=== PATIENT | female | born 1935 | race Caucasian/White ===

== ENCOUNTER 2021-03-17 01:25 | Outpatient (CLI) | payer SELFPAY | END 2021-03-17 01:26 | disposition EMS.NT | LOC: EMS 01:25 | DX: R51.9 Headache, unspecified (principal); R41.9 Unspecified symptoms and signs involving cognitive functions and awareness ==

== ENCOUNTER 2022-08-06 12:44 | Emergency (ER) | payer MEDICARE ==
[2022-08-06 13:03] VITALS: BP 152/73
--- OUTSIDE RECORDS SUMMARY | 2022-08-06 13:23 | EXTERNAL MEDICAL SUMMARY RPT | Continuity of Care Document ---
:1935 Author Organization [place] Address [address] [place] [address] Phone Allergies No information. Encounters No information. Functional Status No information. Immunizations No information. Medications No information. Problems date description facility 2022-06-07 10:[address] [facility] proteins Procedures No information. Results/Labs test date author facility value unit interpret ation Result panel 1 (unknown) (no (unknown) (unknown) (no value) (units (unk nown) date) unknown) (unknown) (no (unknown) (unknown) 06/07/22 (units (unkno wn) date) unknown) (unknown) (no (unknown) (unknown) [address] [place] [address] (units (unknown) date) unknown) (unknown) (no (unknown) (unknown) 61 mL. (units (unkno wn) date) unknown) (unknown) (no (unknown) (unknown) 6536 (units (unkno wn) date) unknown) (unknown) (no (unknown) (unknown) 99m (units (unkno wn) date) unknown) (unknown) (no (unknown) (unknown) A pharmacologic (units (unknown) date) stress test was unknown) performed under the supervision of an attending (unknown) (no (unknown) (unknown) Accession Number: (units (unknown) date) [id number] unknown) (unknown) (no (unknown) (unknown) Age/Sex: 87 / F Date (uni ts (unknown) date) of Service: unknown) (unknown) (no (unknown) (unknown) MICHAEL Fortune [id number] (unit s (unknown) date) unknown) (unknown) (no (unknown) (unknown) Approved by: Jessika (unit s (unknown) date) Quentin Treviño on unknown) 06/07/2022 at 16:02 (unknown) (no (unknown) (unknown) CARDIAC STRESS: (units (unknown) date) unknown) (unknown) (no (unknown) (unknown) COMPARISON: None. (units (unknown) date) unknown) (unknown) (no (unknown) (unknown) : 1935 (units (unknown) date) Acct:[id number] unknown) (unknown) (no (unknown) (unknown) Dictated by: Jessika (unit s (unknown) date) Quentin Treviño on unknown) 06/07/2022 at 16:00 (unknown) (no (unknown) (unknown) EKG: No diagnostic (units (unknown) date) changes of ischemia; unknown) no ectopy. (unknown) (no (unknown) (unknown) FINDINGS: (units (unkn own) date) unknown) (unknown) (no (unknown) (unknown) Hemodynamic data: (units (unknown) date) There is normal blood unknown) pressure and heart rate response to (unknown) (no (unknown) (unknown) Hyperdynamic left (units (unknown) date) ventricular function. unknown) (unknown) (no (unknown) (unknown) IMPRESSION: No (units (unknown) date) evidence of unknown) pharmacologic induced ischemia or scar. (unknown) (no (unknown) (unknown) INDICATIONS: (units (u nknown) date) ELEVATED TROPONIN unknown) (unknown) (no (unknown) (unknown) [facility] (units (unknown) date) unknown) (unknown) (no (unknown) (unknown) Left ventricle (units (unknown) date) function: Gated unknown) images demonstrate normal left ventricular wall (unknown) (no (unknown) (unknown) Left ventricle (units (unknown) date) stress ejection unknown) fraction is >75%; normal range is above 45%. (unknown) (no (unknown) (unknown) Loc: [facility] (units (unkn own) date) unknown) (unknown) (no (unknown) (unknown) Myocardial (units (unk nown) date) perfusion: There is unknown) normal distribution of activity in the right (unknown) (no (unknown) (unknown) [facility] (units (unknown) date) Report unknown) (unknown) (no (unknown) (unknown) Ordering Provider: (units (unknown) date) Jessika Treviño E unknown) D.OCandida (unknown) (no (unknown) (unknown) PROCEDURE: NM ARIEL (units (unknown) date) PERF SPECT R+S PHARM unknown) (unknown) (no (unknown) (unknown) Patient: Claudia Gray (uni ts (unknown) date) MR#: [id number] unknown) (unknown) (no (unknown) (unknown) Procedure: NM ariel (units (unknown) date) perf SPECT R+S pharm unknown) (unknown) (no (unknown) (unknown) RADIOPHARMACEUTICAL: (uni ts (unknown) date) 12.0 mCi Tc-99m unknown) tetrafosmin IV at rest and 26.5 mCi Tc (unknown) (no (unknown) (unknown) Raw data: There is (units (unknown) date) good myocardial unknown) uptake of radiotracer. No significant (unknown) (no (unknown) (unknown) Rest and (units (unkno wn) date) pharmacological unknown) stress myocardial perfusion SPECT with gated imaging (unknown) (no (unknown) (unknown) SPECT images were (units (unknown) date) obtained. SPECT unknown) myocardial perfusion images were displayed (unknown) (no (unknown) (unknown) Signed (units (unkno wn) date) unknown) (unknown) (no (unknown) (unknown) Symptoms: The (units ( unknown) date) patient denied unknown) anginal chest pain. (unknown) (no (unknown) (unknown) TECHNIQUE: (units (unn) ) Radiopharmaceutical unknown) was injected at peak stress test, and also at (unknown) (no (unknown) (unknown) and left (units (unkno wn) date) unknown) (unknown) (no (unknown) (unknown) and (units (unkno wn) date) unknown) (unknown) (no (unknown) (unknown) artifacts. (units (unk nown) date) Ztvr-kg-vvife ratio unknown) is 0.22 (normal is less than 0.38 for (unknown) (no (unknown) (unknown) axis, horizontal (units (unknown) date) long axis, and unknown) vertical long axis views. Gated images were (unknown) (no (unknown) (unknown) dilation; TID (units ( unknown) date) unknown) (unknown) (no (unknown) (unknown) ejection fraction (units (unknown) date) unknown) (unknown) (no (unknown) (unknown) in short (units (unkno wn) date) unknown) (unknown) (no (unknown) (unknown) is 1.1 (normal less (unit s (unknown) date) than 1.3). Left unknown) ventricle resting end diastolic volume is (unknown) (no (unknown) (unknown) motion (units (unkno wn) date) unknown) (unknown) (no (unknown) (unknown) performed. (units (unk nown) date) unknown) (unknown) (no (unknown) (unknown) pharmacologic (units ( unknown) date) stress. unknown) (unknown) (no (unknown) (unknown) rest. (units (unkno wn) date) unknown) (unknown) (no (unknown) (unknown) reviewed (units (unkno wn) date) unknown) (unknown) (no (unknown) (unknown) staff, (units (unkno wn) date) unknown) (unknown) (no (unknown) (unknown) tetrafosmin IV at (units (unknown) date) peak effect of unknown) pharmacological stress. Hfs-nio-hpdrwlft was (unknown) (no (unknown) (unknown) tetrafosmin (units (un known) date) unknown) (unknown) (no (unknown) (unknown) thickening. No (units (unknown) date) segmental wall motion unknown) abnormalities. No transient ischemic (unknown) (no (unknown) (unknown) tracer). (units (unkno wn) date) unknown) (unknown) (no (unknown) (unknown) using AutoQU[employer] (units (unknown) date) software. unknown) (unknown) (no (unknown) (unknown) using an infusion of (uni ts (unknown) date) Regadenoson. unknown) (unknown) (no (unknown) (unknown) ventricular (units (un known) date) myocardium. No fixed unknown) or reversible perfusion defects. Result panel 2 (unknown) (no date) (unknown) (unknown) Negative (units (unkn own) unknown) (unknown) (no date) (unknown) (unknown) Negative (units (unkn own) unknown) Social History No information. Vital Signs No information.
[2022-08-06] MEDS ORDERED: oxyCODONE 5 MG TABLET PO STA (14:42)
[2022-08-06] MEDS ORDERED: DEXAMETHASONE 10 MG/ML VIAL PO STA (14:43)
[2022-08-06] MEDS ORDERED: CHERRY SYRUP 10 ML UDC PO ONE (14:43)
--- NOTE | 2022-08-06 15:20 | ED Physician Documentation ---
History of Present Illness - Stated complaint Stated Complaint: FALL/LT SIDE BACK PX - Chief complaint Chief Complaint: Trauma Ch/Bk - History obtained from History obtained from: Patient, Family - History of Present Illness Timing: How many days ago (6) - Additonal information Additional information: Claudia Gray is an 87-year-old female with a history of rheumatoid arthritis and hypertension who had a stroke last summer was evaluated and treated here and [place]. She is had a fall 6 days ago and was evaluated in the emergency department at [facility]. There they did a CT scan of the chest and C and T-spine without evidence of fracture. The patient comes to the emergency department today with a chief complaint of inability to control her pain. She has pain to the area of her upper back and left side of her chest. She has pain when she moves. She has been taking ibuprofen and Tylenol and had a very rough night last night. She is accompanied by her daughter who is concerned about her lack of pain control and the possibility that something must of been missed. Review of Systems Constitutional: denies: Fever Eyes: denies: Decreased vision Ears: denies: Ear pain Nose: denies: Congestion Throat: denies: Sore throat Cardiac: reports: Chest pain / pressure Respiratory: denies: Dyspnea, Cough GI: denies: Abdominal Pain, Nausea, Vomiting, Constipation, Diarrhea : denies: Dysuria, Frequency Skin: denies: Rash Musculoskeletal: reports: Back pain. denies: Neck pain PD PAST MEDICAL HISTORY - Past Medical History Cardiovascular: Hypertension Respiratory: None Neuro: None Endocrine/Autoimmune: None Musculoskeletal: Rheumatoid arthritis - Present Medications Home Medications: Ambulatory Orders Medication Instructions Recorded Confirmed Etanercept [Enbrel] 0.5 ml IM UD 01/16/22 01/16/22 traMADol [Ultram] 1 - 2 tab PO BID 01/16/22 01/16/22 Atorvastatin [Lipitor] 80 mg PO QPM 30 Days #60 tablet 01/19/22 Clopidogrel [Plavix] 75 mg PO DAILY #30 tablet 01/19/22 oxyCODONE [Roxicodone] 5 mg PO Q4-6H PRN #14 tablet 08/06/22 - Allergies Allergies/Adverse Reactions: Allergies Allergy/AdvReac Type Severity Reaction Status Date / Time hydrocodone AdvReac Nausea Verified 08/06/22 12:57 - Social History Does the pt smoke?: No Smoking Status: Never smoker Does the pt drink ETOH?: No Does the pt have substance abuse?: No - Immunizations Immunizations are current?: Yes - POLST Patient has POLST: No PD ED PE NORMAL - Vitals Vital signs reviewed: Yes (hypertensive ) - General General: Alert and oriented X 3, No acute distress, Well developed/nourished - HEENT HEENT: Atraumatic, PERRL, EOMI - Neck Neck: Supple, no meningeal sign, No bony TTP - Cardiac Cardiac: RRR, No murmur - Respiratory Respiratory: No respiratory distress, Clear bilaterally, Other (Mild tenderness to the posterior aspect the left chest over the rhomboids and extending up into the shoulder) - Abdomen Abdomen: Normal bowel sounds, Soft, Non tender, Non distended, No organomegaly - Back Back: No CVA TTP, No spinal TTP - Derm Derm: Normal color, Warm and dry, No rash - Extremities Extremities: No deformity, No edema - Neuro Neuro: Alert and oriented X 3, 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, No motor deficit, No sensory deficit, Normal speech Eye Opening: Spontaneous Motor: Obeys Commands Verbal: Oriented GCS Score: 15 - Psych Psych: Normal mood, Normal affect Results - Vitals Vitals: Vital Signs - 24 hr 08/06/22 12:57 Temperature 36.5 C Heart Rate 88 Respiratory 16 Rate Blood Pressure 152/73 H O2 Saturation 100 Oxygen O2 Source Room air - Rads (name of study) chest Radiology: Prelim report reviewed (Impression: No acute cardiopulmonary disease process.), EMP read indepedently PD Medical Decision Making - ED course Complexity details: reviewed results, re-evaluated patient, considered differential, d/w patient, d/w family Social Determinants of Health: The patient is of advanced age and she has had a CVA she is currently living with her daughter and this appears to be an appropriate and safe environment. ED course: 87-year-old female with a fall onto her back with a prior evaluation including CT scan of the cervical spine and thoracic spine and chest has not exacerbation of her pain 6 days into her illness. She is not getting adequate pain relief with use of ibuprofen and Tylenol. She has had adverse reaction to hydrocodone and codeine with nausea. She was willing to try oxycodone and this appears to have worked without nausea. She did get some pain relief with this. She was given a dose of dexamethasone as well. Departure - Departure Disposition: 01 Home, Self Care Clinical Impression: Contusion of thoracic wall Qualifiers: Encounter type: initial encounter Front or back of thoracic wall: back Thoracic wall location detail: left Qualified Code(s): S20.222A - Contusion of left back wall of thorax, initial encounter Condition: Stable Instructions: ED Contusion Chest Wall Follow-Up: RAMIREZ AZAR MD [Primary Care Provider] - [facility] [Provider Group] Prescriptions: oxyCODONE [Roxicodone] 5 mg PO Q4-6H PRN #14 tablet PRN Reason: Pain Comments: Claudia today it looks like you are having excessive pain likely related to the contusion to your chest wall from 5 days ago. This is known to happen with chest wall contusions and what we would like to do today is provide you with adequate pain relief. I have E scribed oxycodone to the [facility] in [place].
--- NOTE | 2022-08-06 15:28 | XRAY Report ---
PROCEDURE: Chest 1 View X-Ray INDICATIONS: chest pain TECHNIQUE: One view of the chest was acquired. COMPARISON: 01/16/2022 FINDINGS: Surgical changes and devices: Electronic medical lab technician projects over the left lung base which is li zoie external to the patient. Lungs and pleura: No pleural effusions or pneumothorax. Lungs are clear. Mediastinum: Mediastinal contours appear normal. Heart size is normal. Bones and chest wall: No suspicious bony lesions. Overlying soft tissues appear unremarkable. IMPRESSION: No acute cardiopulmonary disease process. Reviewed by: Ladan Wiggins MD, PhD on 08/06/2022 3:26 PM PST Approved by: Ladan Wiggins MD, PhD on 08/06/2022 3:26 PM PST Station ID: [id number]
== END 2022-08-06 16:00 | disposition home or self-care (01) ==
LOC: ED 12:44
DX: S20.222A Contusion of left back wall of thorax, initial encounter (principal); W19.XXXA Unspecified fall, initial encounter; Z86.73 Personal history of transient ischemic attack (TIA), and cerebral infarction without residual deficits; I10 Essential (primary) hypertension; M06.9 Rheumatoid arthritis, unspecified
CPT/HCPCS: 71045; 99283; A9270

== ENCOUNTER 2022-08-24 09:08 | Emergency (ER) | payer MEDICARE ==
[2022-08-24] MEDS ORDERED: methylPREDNISolone SUCCINATE 125 MG/2 ML VIAL IVP STA (09:31)
[2022-08-24] MEDS ORDERED: IPRATROPIUM/ALBUTEROL 3 ML NEB INH STA (09:31)
--- NOTE | 2022-08-24 09:34 | ED Physician Documentation ---
PD HPI DYSPNEA - Stated complaint Stated Complaint: COLD - Chief complaint Chief Complaint: Resp - History obtained from History obtained from: Patient, Family (daughter) - History of Present Illness Timing - onset: How many days ago (3-4) Timing - duration: Days (3-4) Timing - details: Gradual onset, Still present Inciting event(s): URI Improved by: Rest Worsened by: Exertion, Coughing Associated symptoms: Cough, Wheezing Similar symptoms before: Diagnosis (asthma as a child) Recently seen: Not recently seen - Additional information Additional information: Claudia Gray is an 87-year-old female who has had a stroke last summer and is now [place] to be with her daughter. She has now developed an upper respiratory tract infection with a cough productive of yellow phlegm. She has developed some shortness of breath. She has a history of asthma as a child but does not normally use inhalers. She is brought here today by her daughter. Review of Systems Constitutional: reports: Sweats. denies: Fever Eyes: denies: Decreased vision Ears: denies: Ear pain Nose: reports: Rhinorrhea / runny nose, Congestion Throat: denies: Sore throat Cardiac: denies: Chest pain / pressure, Palpitations Respiratory: reports: Dyspnea, Cough, Wheezing GI: denies: Abdominal Pain, Nausea, Vomiting, Diarrhea : denies: Dysuria, Frequency Skin: denies: Rash Musculoskeletal: denies: Neck pain, Back pain, Extremity pain PD PAST MEDICAL HISTORY - Past Medical History Cardiovascular: Hypertension Respiratory: None Neuro: None Endocrine/Autoimmune: None Musculoskeletal: Rheumatoid arthritis - Present Medications Home Medications: Ambulatory Orders Medication Instructions Recorded Confirmed Etanercept [Enbrel] 0.5 ml IM UD 01/16/22 01/16/22 traMADol [Ultram] 1 - 2 tab PO BID 01/16/22 01/16/22 Atorvastatin [Lipitor] 80 mg PO QPM 30 Days #60 tablet 01/19/22 Clopidogrel [Plavix] 75 mg PO DAILY #30 tablet 01/19/22 oxyCODONE [Roxicodone] 5 mg PO Q4-6H PRN #14 tablet 08/06/22 Albuterol Sulf [Ventolin Hfa 1 - 2 puffs INH Q4HR PRN #1 each 08/24/22 Inhaler] Azithromycin [Zithromax] 250 mg PO DAILY #6 tablet 08/24/22 predniSONE [Deltasone] 40 mg PO DAILY 5 Days #10 tablet 08/24/22 - Allergies Allergies/Adverse Reactions: Allergies Allergy/AdvReac Type Severity Reaction Status Date / Time codeine Allergy Unknown Verified 08/24/22 09:21 hydrocodone AdvReac Nausea Verified 08/06/22 12:57 - Social History Does the pt smoke?: No Smoking Status: Never smoker Does the pt drink ETOH?: No Does the pt have substance abuse?: No - Immunizations Immunizations are current?: Yes - POLST Patient has POLST: No PD ED PE NORMAL - Vitals Vital signs reviewed: Yes - General General: Alert and oriented X 3, Well developed/nourished, Other (tachypneic at rest ) - HEENT HEENT: Atraumatic, PERRL, EOMI - Neck Neck: Supple, no meningeal sign, No bony TTP - Cardiac Cardiac: RRR, No murmur - Respiratory Respiratory: Other (tachypneic with diminished breath sounds. 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, No motor deficit, No sensory deficit, Normal speech Eye Opening: Spontaneous Motor: Obeys Commands Verbal: Oriented GCS Score: 15 - Psych Psych: Normal mood, Normal affect Results - Vitals Vitals: Vital Signs - 24 hr 08/24/22 08/24/22 08/24/22 09:17 09:36 10:23 Temperature 36.4 C L Heart Rate 91 84 88 Respiratory 18 20 20 Rate Blood Pressure 177/77 H O2 Saturation 98 Oxygen O2 Source Room air - Labs Labs: Laboratory Tests 08/24/22 08/24/22 08/24/22 09:39 09:39 10:20 WBC 6.3 RBC 4.09 L Hgb 11.0 L Hct 36.3 L MCV 88.8 MCH 26.9 L MCHC 30.3 L RDW 15.6 H Plt Count 256 MPV 10.0 Neut # (Auto) 4.1 Lymph # (Auto) 1.0 L [place] # (Auto) 0.7 Eos # (Auto) 0.4 Baso # (Auto) 0.0 Absolute Nucleated RBC 0.00 Nucleated RBC % 0.0 Sodium 141 Potassium 3.7 Chloride 104 Carbon Dioxide 28 Anion Gap 9.0 BUN 19 Creatinine 1.1 H Estimated GFR (MDRD) 47 L Glucose 97 Calcium 9.0 Total Bilirubin 0.7 AST 34 ALT 21 Alkaline Phosphatase 113 Total Protein 7.1 Albumin 4.0 Globulin 3.1 Albumin/Globulin Ratio 1.3 Lipase 41 Nasal Adenovirus (PCR) NOT DETECTED Nasal B. parapertussis DNA (PCR) NOT DETECTED Nasal Coronavir 229E PCR NOT DETECTED Nasal Coronavir HKU1 PCR NOT DETECTED Nasal Coronavir NL63 PCR NOT DETECTED Nasal Coronavir OC43 PCR NOT DETECTED Nasal Enterovir/Rhinovir PCR DETECTED A Nasal Influenza B PCR NOT DETECTED Nasal Influenza A PCR NOT DETECTED Nasal Parainfluen 1 PCR NOT DETECTED Nasal Parainfluen 2 PCR NOT DETECTED Nasal Parainfluen 3 PCR NOT DETECTED Nasal Parainfluen 4 PCR NOT DETECTED Nasal RSV (PCR) NOT DETECTED Nasal B.pertussis DNA PCR NOT DETECTED Nasal C.pneumoniae (PCR) NOT DETECTED David Human Metapneumo PCR NOT DETECTED Nasal M.pneumoniae (PCR) NOT DETECTED Nasal SARS-CoV-2 (PCR) NOT DETECTED - Rads (name of study) chest Radiology: Prelim report reviewed (Impression: Stable portable chest, without an acute abnormality identified.), EMP read indepedently, See rad report PD Medical Decision Making - ED course Complexity details: reviewed old records, reviewed results, re-evaluated patient, considered differential, d/w patient, d/w family Reviewed Lab Results: We reviewed a complete blood count and found a normal white blood cell count mildly low hemoglobin and hematocrit at 11.0 and 36.3 and normal platelets we reviewed the patient's chemistries to find a mildly elevated creatinine at 1.1 normal for the patient being 0.9 we detected enterovirus on the nasal PCR. We looked at the chest x-ray with concerns for pneumonia and found no evidence of a direct infiltrate. Social Determinants of Health: Patient is currently living with her daughter here on [facility] and plans to go back to her home with her daughter to see her primary care doctor and her eye doctor this week within 2 days. I believe the patient will be safe to travel. ED course: Claudia Gray presented to the emergency department with dyspnea cough and wheezing. She was administered a DuoNeb treatment with marked improvement she was administered 125 mg of Solu-Medrol intravenously. A chest x-ray was without evidence of the AV pneumonia and her PCR was positive for rhinovirus. She is bringing up colored sputum. We will place patient on a short course of antibiotic, inhaler and prednisone. I have encouraged her to follow-up with her primary as planned in 4 days. Departure - Departure Disposition: 01 Home, Self Care Clinical Impression: Acute asthmatic bronchitis, Rhinovirus infection Condition: Stable Instructions: ED Bronchitis Asthmatic, Cold Virus Follow-Up: RAMIREZ AZAR MD [Primary Care Provider] - Prescriptions: Albuterol Sulf [Ventolin Hfa Inhaler] 1 - 2 puffs INH Q4HR PRN #1 each PRN Reason: Shortness Of Air/Wheezing predniSONE [Deltasone] 40 mg PO DAILY 5 Days #10 tablet Azithromycin [Zithromax] 250 mg PO DAILY #6 tablet Comments: Claudia, today it looks like your nasal PCR was positive for rhinovirus. This is a common cold virus and it looks like you have a complication of this with asthmatic bronchitis. Treatment for the asthmatic bronchitis part of this is with a bronchodilator or the inhaler and a steroid prednisone. These have been E scribed to the [facility] in [place]. You are producing some colored phlegm and under these conditions addition of antibiotic is indicated and there is a prescription for azithromycin at the [facility] in [place] as well. I believe it will be safe to travel to [place] in 2 days time. We are not expecting worsening of your condition.
--- OUTSIDE RECORDS SUMMARY | 2022-08-24 09:35 | EXTERNAL MEDICAL SUMMARY RPT | Continuity of Care Document ---
:1935 Author Organization [place] Address [address] [place] [address] Phone Allergies No information. Encounters No information. Functional Status No information. Immunizations No information. Medications No information. Problems date description facility 2022-06-07 10:[address] [facility] proteins Procedures No information. Results/Labs test date author facility value unit interpret ation Result panel 1 (unknown) (no (unknown) (unknown) (no value) (units (unk nown) date) unknown) (unknown) (no (unknown) (unknown) 06/07/22 (units (unkno wn) date) unknown) (unknown) (no (unknown) (unknown) [address] [place] [address] (units (unknown) date) unknown) (unknown) (no (unknown) [...] (unknown) (unknown) Accession Number: (units (unknown) date) [id number] unknown) (unknown) (no (unknown) (unknown) Age/Sex: 87 / F Date (uni ts (unknown) date) of Service: unknown) (unknown) (no (unknown) (unknown) MICHAEL Fortune [id number] (unit s (unknown) date) unknown) (unknown) (no (unknown) (unknown) Approved by: Jessika (unit s (unknown) date) Quentin Treviño on unknown) 06/07/2022 at 16:02 (unknown) (no (unknown) (unknown) CARDIAC STRESS: (units (unknown) date) unknown) (unknown) (no (unknown) (unknown) COMPARISON: None. (units (unknown) date) unknown) (unknown) (no (unknown) (unknown) : 1935 (units (unknown) date) Acct:[id number] unknown) (unknown) (no (unknown) (unknown) Dictated by: [...] ELEVATED TROPONIN unknown) (unknown) (no (unknown) (unknown) [facility] (units (unknown) date) unknown) (unknown) (no (unknown) [...] Claudia Gray (uni ts (unknown) date) MR#: [id number] unknown) (unknown) (no (unknown) (unknown) Procedure: NM [...] (unknown) (unknown) artifacts. (units (unk nown) date) Bhov-qf-ocpsy ratio unknown) is 0.22 (normal is less [...] date) peak effect of unknown) pharmacological stress. Zqt-zky-mharclub was (unknown) (no (unknown) (unknown) tetrafosmin (units [...]
[2022-08-24 09:48] LABS: BASOPHILS % (AUTO) 0.6 %; EOSINOPHILS # (AUTO) 0.4 10^3/uL (0.0-0.7); EOSINOPHILS % (AUTO) 6.6 %; HCT - HEMATOCRIT 36.3 % (37.0-47.0); LYMPHOCYTES % (AUTO) 16.5 %; MEAN CORPUSCULAR HEMOGLOBIN 26.9 pg (27.0-31.0); MEAN CORPUSCULAR HGB CONC 30.3 g/dL (32.0-36.0); MEAN CORPUSCULAR VOLUME 88.8 fL (81.0-99.0); MONOCYTES # (AUTO) 0.7 10^3/uL (0.0-1.0); MONOCYTES % (AUTO) 10.8 %; NEUTROPHILS # (AUTO) 4.1 10^3/uL (1.5-6.6); NEUTROPHILS % (AUTO) 65.3 %; PLT - PLATELET COUNT 256 10^3/uL (130-450); RED BLOOD COUNT 4.09 10^6/uL (4.20-5.40); RED CELL DISTRIBUTION WIDTH 15.6 % (12.0-15.0); WHITE BLOOD COUNT 6.3 x10^3/uL (4.8-10.8)
[2022-08-24 10:06] LABS: ALBUMIN/GLOBULIN RATIO 1.3 (1.0-2.2); BILIRUBIN,TOTAL 0.7 mg/dL (0.2-1.0); CREATININE 1.1 mg/dL (0.4-1.0); POTASSIUM 3.7 mmol/L (3.5-5.0); TOTAL PROTEIN 7.1 g/dL (6.7-8.2)
--- NOTE | 2022-08-24 10:07 | XRAY Report ---
PROCEDURE: Chest 1 View X-Ray INDICATIONS: chest pain TECHNIQUE: One view of the chest was acquired. COMPARISON: 08/06/2022, 12/17/2021 FINDINGS: Surgical changes and devices: None. Lungs and pleura: No pleural effusions or pneumothorax. Lungs are clear. Mediastinum: The aorta is prominent and tortuous. The cardiac contours are within normal limits. Bones and chest wall: No suspicious bony lesions. Age-appropriate degenerative changes are seen. Overlying soft tissues appear unremarkable. IMPRESSION: Stable portable chest, without an acute abnormality identified. Reviewed by: Keven Whitehead MD on 08/24/2022 9:05 AM [facility] Approved by: Keven Whitehead MD on 08/24/2022 9:05 AM [facility] Station ID: [id number]
[2022-08-24] MEDS ORDERED: ALBUTEROL NEB 2.5 MG/3 ML INH STA (10:17)
[2022-08-24 11:21] LABS: B. PARAPERTUSSIS- RESP PCR PAN NOT DETECTED; B. PERTUSSIS- RESP PCR PANEL NOT DETECTED; C. PNEUMONIAE- RESP PCR PANEL NOT DETECTED; CORONAVIRUS 229E-RESP PCR NOT DETECTED; CORONAVIRUS HKU1-RESP PCR NOT DETECTED; CORONAVIRUS NL63-RESP PCR NOT DETECTED; CORONAVIRUS OC43-RESP PCR NOT DETECTED; HUMAN METAPNEUMOVIRUS NOT DETECTED; INFLUENZA A- RESP PCR PANEL NOT DETECTED; INFLUENZA B - RESP PCR PANEL NOT DETECTED; M. PNEUMONIAE- RESP PCR PANEL NOT DETECTED; PARAINFLUENZA VIRUS 1 NOT DETECTED; PARAINFLUENZA VIRUS 2 NOT DETECTED; PARAINFLUENZA VIRUS 3 NOT DETECTED; PARAINFLUENZA VIRUS 4 NOT DETECTED; RHINOVIRUS/ENTEROVIRUS DETECTED; RSV- RESP PCR PANEL NOT DETECTED; SARS-CoV-2 -RESP PCR PANEL NOT DETECTED
[2022-08-24 13:07] VITALS: BP 154/76
== END 2022-08-24 13:20 | disposition home or self-care (01) ==
LOC: ED 09:08
DX: B34.8 Other viral infections of unspecified site (principal); J45.909 Unspecified asthma, uncomplicated; Z20.822 Contact with and (suspected) exposure to COVID-19
CPT/HCPCS: 36415; 80053; 83690; 85025; 87633; 94640; 94664; 96374; 99284